=== PATIENT | female | born 1980 | race Caucasian/White ===

== ENCOUNTER 2017-01-31 17:52 | Emergency (ER) | payer OTHER ==
[~2017-01-31] VITALS: Ht 160 cm; Wt 81.6 kg
[~2017-01-31 17:52] MED LIST: ANTIVERT25 MG PO; ZOFRAN ODT4 M1 SL
--- NOTE | 2017-01-31 18:40 | ED UPPER/LOWER EXTREMITY COMPL ---
History of Present Illness General Chief Complaint: Shoulder Injury Stated Complaint: R SHOULDER INJURY Source: patient Exam Limitations: no limitations Vital Signs & Intake/Output Vital Signs & Intake/Output Vital Signs Date Time Temp Pulse Resp B/P Pulse O2 O2 Flow FiO2 Ox Delivery Rate 01/31 2003 98.1 86 16 138/84 98 Room Air 01/31 1919 Room Air 01/31 1758 98.6 86 16 123/77 99 Room Air Allergies Coded Allergies: Penicillins (UNKNOWN 05/16/16) promethazine (From PHENERGAN) (VASO VAGAL 01/31/17) Reconcile Medications Ibuprofen (Advil Liqui-Gels) 200 MG CAPSULE 4 CAP PO PRN PAIN/INFLAMMATION ( Reported) Ketorolac Tromethamine 10 MG TABLET 1 TAB PO TID PRN PAIN RECEIVED IM IN ER Naproxen (Naprosyn) (Unknown Strength) TABLET (Unknown Dose) PO AD PRN PAIN/ INFLAMMATION (Reported) Triage Note: PT C/O RIGHT SHOULDER PAIN DOES NOT REMEMBER INJURING HERSELF. PT STATES THIS PAIN HAS BEEN LASTING FOR A FEW DAYS. PT HAVING INCREASED PAIN WITH MOVEMENT. Triage Nurses Notes Reviewed? yes Onset: Gradual Duration: constant Timing: recent history Severity: severe Severity Numbers: 8 Method of Injury: unknown : No Patient currently breastfeeds: No HPI: Patient is a 36-year-old female who presents emergency room with a three-day history of right shoulder pain. Patient denies any mechanism injury patient has been taking [id number] Motrin Tylenol with minimal relief of symptoms. The patient is right arm dominant. Denies any repetitive motions. (WAYLON PARKER) Past History Travel History Traveled to [place] past 21 day No Medical History Any Pertinent Medical History? see below for history Neurological: migraine Respiratory: asthma Musculoskeletal: fibromyalgia Psychiatric: anxiety, ADHD Surgical History Surgical History: none Psychosocial History Who do you live with Spouse Services at Home None What is your primary language [place] Tobacco Use: Current Daily Use Daily Tobacco Use Amount/Type: => 5 Cigarettes daily ETOH Use: denies use Illicit Drug Use: denies illicit drug use Family History Hx Contributory? No (WAYLON PARKER) Review of Systems Review of Systems Constitutional: Reports: no symptoms. EENTM: Reports: no symptoms. Respiratory: Reports: no symptoms. Cardiovascular: Reports: no symptoms. Gastrointestinal/Abdominal: Reports: no symptoms. Genitourinary: Reports: no symptoms. Musculoskeletal: Reports: see HPI, joint pain. Skin: Reports: no symptoms. Neurological/Psychological: Reports: no symptoms. Hematologic/Endocrine: Reports: no symptoms. Immunological: Reports: no symptoms. All Other Systems: Reviewed and Negative (WAYLON PARKER) Physical Exam Physical Exam General Appearance: no apparent distress, alert, comfortable Neurologic/Tendon: normal sensation, normal motor functions, normal tendon functions, responds to pain, no evidence tendon injury, no pulse deficit Skin: intact, normal color, warm/dry Comments: Well-developed well-nourished no apparent distress. HEENT: Atraumatic, extraocular motion intact Neck: Supple, no lymphadenopathy Back: Nontender Respiratory: No respiratory distress Extremities: Right shoulder normal inspection acromioclavicular point tenderness, decreased active range of motion of flexion and abduction at 60 Right elbow normal inspection nontender Right upper extremity dermatomes intact RADIAL pulse +2 Neuro: Alert and oriented x3 Psych: Mood affect normal, normal memory normal judgment. (WAYLON PARKER) Progress Differential Diagnosis: arterial insufficiency, compartment syndrome, contusion, dislocation, DVT, fracture, gout, septic arthritis, sprain, tendon injury Plan of Care: Orders Procedure Date/time Status Durable Medical Equipment 01/31 1935 Active No osseous injury noted with patient was symptomatically point tender. Shoulder immobilizer was placed pre-and post neurovascular was intact Patient was strongly advised to follow up with orthopedic doctor if no better (WAYLON PARKER) Diagnostic Imaging: Viewed by Me: Radiology Read. Radiology Impression: no fracture Comments: PATIENT: HILLARY PHAN PRESENT AGE: 36 PATIENT ACCOUNT NO: [id number] : 80 LOCATION: [facility] ORDERING PHYSICIAN: WAYLON ESTRADA SERVICE DATE: 01/31/17 EXAM TYPE: RAD - XRY-SHOULDER COMPLETE-RIGHT EXAMINATION: XR SHOULDER, RIGHT CLINICAL INFORMATION: Right shoulder pain COMPARISON: None TECHNIQUE: Three views of the right shoulder, 4 images. FINDINGS: The humeral head is normally located within the glenoid fossa. There is no acute fracture or subluxation. The acromioclavicular and coracoclavicular intervals appear maintained. The visualized right lung apex is clear. IMPRESSION: Unremarkable right shoulder exam. DICTATED BY: JAZMINE CONNORS MD DATE/TIME DICTATED:01/31/171903 COMMERCIAL DIRECTOR:LUCIANA DATE/TIME TRANSCRIBED:01/31/171903 (WAYLON PARKER) Departure Departure Disposition: HOME OR SELF CARE Condition: Stable Clinical Impression Primary Impression: Right shoulder pain Referrals: SAMPSON PLASENCIA MD (PCP/Family) Additional Instructions: As discussed begin icing the area directly 20 minutes every 2 hours. Begin using the shoulder immobilizer UNTIL YOU can move your arm without pain. Begin the prescription ketorolac for pain and inflammation. If no better in one week follow-up with your insurance [employer] website for orthopedic doctors If symptoms worsen return to emergency room Departure Forms: Customer Survey General Discharge Information Prescriptions: Current Visit Scripts Ketorolac Tromethamine 1 TAB PO TID PRN PAIN #15 TAB RECEIVED IM IN ER (WAYLON PARKER) PA/SULFUR CHLORIDE OPERATOR Co-Sign Statement Statement: ED Attending supervision documentation- [] I saw and evaluated the patient. I have also reviewed all the pertinent lab results and diagnostic results. I agree with the findings and the plan of care as documented in the PA's/SULFUR CHLORIDE OPERATOR's documentation. [X] I have reviewed the ED Record and agree with the PA's/SULFUR CHLORIDE OPERATOR's documentation. [] Additions or exceptions (if any) to the PAs/SULFUR CHLORIDE OPERATOR's note and plan are summarized below: [] (ANDRES CARRERA,RONALD)
[2017-01-31] MEDS ORDERED: ADVIL LIQUI-GE200 M1 PO (18:44)
[2017-01-31] MEDS ORDERED: NAPROSYN500 M1 PO (18:44)
--- NOTE | 2017-01-31 19:09 | RADIOLOGY REPORT ---
EXAMINATION: XR SHOULDER, RIGHT CLINICAL INFORMATION: Right shoulder pain COMPARISON: None TECHNIQUE: Three views of the right shoulder, 4 images. FINDINGS: The humeral head is normally located within the glenoid fossa. There is no acute fracture or subluxation. The acromioclavicular and coracoclavicular intervals appear maintained. The visualized right lung apex is clear. IMPRESSION: Unremarkable right shoulder exam.
[2017-01-31] MEDS ORDERED: ZOFRAN4 M2 PO (19:46)
[2017-01-31] MEDS ORDERED: KETOROLAC TROME10 M1 PO (19:46)
[2017-01-31 20:03] VITALS: BP 138/84
== END 2017-01-31 20:15 ==
LOC: ERH 17:52
DX: M25.511 Pain in right shoulder (principal)
CPT/HCPCS: 73030-RT; 96372; J1885

== ENCOUNTER 2018-06-15 15:16 | Emergency (ER) | payer OTHER ==
[~2018-06-15] VITALS: Ht 160 cm; Wt 93.9 kg
[~2018-06-15 15:16] MED LIST changes: +ADVIL LIQUI-GE200 M1 PO; +KETOROLAC TROME10 M1 PO; +NAPROSYN500 M1 PO; +ZOFRAN4 M2 PO
[2018-06-15 15:22] VITALS: BP 120/83
[2018-06-15] MEDS ORDERED: CLEOCIN HCL300 M1 PO (15:28)
[2018-06-15] MEDS ORDERED: PREDNISONE50 M1 PO (15:28)
--- NOTE | 2018-06-15 15:29 | ED GENERAL ADULT ---
History of Present Illness General Chief Complaint: General Adult Stated Complaint: SWOLLEN NECK Source: patient Exam Limitations: no limitations Vital Signs & Intake/Output Vital Signs & Intake/Output Vital Signs Date Time Temp Pulse Resp B/P B/P Pulse O2 O2 Flow FiO2 Mean Ox Delivery Rate 06/15 1522 98.7 112 15 120/83 98 Room Air Room Air Allergies Coded Allergies: Penicillins (UNKNOWN 06/15/18) promethazine (From PHENERGAN) (VASO VAGAL 06/15/18) Reconcile Medications Clindamycin HCl (Cleocin HCl) 300 MG CAPSULE 1 CAP PO TID DENTAL INFECTION Ibuprofen (Advil Liqui-Gels) 200 MG CAPSULE 4 CAP PO PRN PAIN/INFLAMMATION ( Reported) Ketorolac Tromethamine 10 MG TABLET 1 TAB PO TID PRN PAIN RECEIVED IM IN ER Naproxen (Naprosyn) (Unknown Strength) TABLET (Unknown Dose) PO AD PRN PAIN/ INFLAMMATION (Reported) Prednisone 50 MG TABLET 1 TAB PO DAILY FACIAL SWELLING Triage Nurses Notes Reviewed? yes Onset: Abrupt Duration: day(s): (1), constant, continues in ED Timing: single episode today Injury Environment: home Severity: mild, moderate Severity Numbers: 6 No Modifying Factors: none LMP (ages 10-50): unknown : No Patient currently breastfeeds: No HPI: 38-year-old female history of anxiety, asthma, fibromyalgia, migraine headaches since her evaluation of right sided facial and neck swelling. Patient reports that symptoms started today when she woke up. There is associated pain. She denies any difficulty swallowing difficult breathing and chest pain shortness of breath or fever. No rashes. No new exposures. The pain and swelling is only on the right side. He does report some associated nasal congestion and rhinorrhea. No headaches. She did not take any medicine for this. (Curtis John) Past History Travel History Traveled to [place] past 21 day No Medical History Any Pertinent Medical History? see below for history Neurological: migraine Respiratory: asthma Musculoskeletal: fibromyalgia Psychiatric: anxiety, ADHD Surgical History Surgical History: none Psychosocial History Who do you live with Spouse Services at Home None What is your primary language Hungarian Tobacco Use: Current Daily Use Daily Tobacco Use Amount/Type: => 5 Cigarettes daily Family History Hx Contributory? No (Curtis John) Review of Systems Review of Systems Constitutional: Reports: no symptoms. EENTM: Reports: throat swelling. Respiratory: Reports: no symptoms. Cardiovascular: Reports: no symptoms. GI: Reports: no symptoms. Genitourinary: Reports: no symptoms. Musculoskeletal: Reports: no symptoms. Skin: Reports: no symptoms. Neurological/Psychological: Reports: no symptoms. Hematologic/Endocrine: Reports: no symptoms. Immunologic/Allergic: Reports: no symptoms. All Other Systems: Reviewed and Negative (Curtis John) Physical Exam Physical Exam General Appearance: well developed/nourished, no apparent distress, alert, awake Head: atraumatic, normal appearance Eyes: Bilateral: normal appearance, PERRL, EOMI. Ears, Nose, Throat: normal pharynx, normal ENT inspection, hearing grossly normal Neck: normal inspection, supple, full range of motion, there is right sided maxillofacial and right-sided submandibular swelling. No palpable lymphadenopathy. No erythema no focal fluctuant areas no discharge. Swelling is very mild. No induration. No trismus. Patient is handling secretions. No tonsillar swelling or exudate no uvular deviation, no stridor Respiratory: normal breath sounds, chest non-tender, no respiratory distress, lungs clear Cardiovascular: regular rate/rhythm, normal peripheral pulses Peripheral Pulses: 2+ radial (R), 2+ radial (L) Gastrointestinal: soft, non-tender Back: normal inspection, normal range of motion, no vertebral tenderness Extremities: normal inspection, normal range of motion, no edema Neurologic/Psych: no motor/sensory deficits, awake, alert, oriented x 3, normal gait Skin: intact, normal color, warm/dry Lymphatic: no anterior cervical carmen Core Measures ACS in differential dx? No CVA/TIA Diagnosis: No Sepsis Present: No Sepsis Focused Exam Completed? No (Curtis John) Progress Differential Diagnoses I considered the following diagnoses in my evaluation of the patient: [Dental infection, sinusitis, lymphadenopathy, allergic reaction, cellulitis, retropharyngeal abscess, peritonsillar abscess,] Plan of Care: Patient is here for evaluation of right-sided facial and neck swelling. Swelling began today. No difficulty breathing no stridor patient does not appear to be acute distress vitals are stable. Patient will be treated with antibiotics and prednisone. Advised to drink clear fluids rest Tylenol or Motrin for pain. Follow-up with the dentist and primary care doctor. Discussed return precautions in detail patient agrees the plan Initial ED EKG: none (Curtis John) Departure Departure Disposition: HOME OR SELF CARE Condition: Stable Clinical Impression Primary Impression: Right facial swelling Referrals: Tyrell Bartlett MD (PCP/Family) Additional Instructions: Take antibiotics as there is instructed to the full course. Tylenol as needed for pain. Follow-up with her primary care doctor for a recheck. Monitor symptoms of worsening pain worsening swelling and unable tolerate fluids or ANY OTHER CONCERNS RETURN IMMEIDATLY. Departure Forms: Customer Survey General Discharge Information Prescriptions: Current Visit Scripts Prednisone 1 TAB PO DAILY #5 TAB Clindamycin HCl (Cleocin HCl) 1 CAP PO TID #30 CAP (Curtis John) PA/AQUACULTURAL WORKER SUPERVISOR Co-Sign Statement Statement: ED Attending supervision documentation- [] I saw and evaluated the patient. I have also reviewed all the pertinent lab results and diagnostic results. I agree with the findings and the plan of care as documented in the PA's/AQUACULTURAL WORKER SUPERVISOR's documentation. [x] I have reviewed the ED Record and agree with the PA's/AQUACULTURAL WORKER SUPERVISOR's documentation. [] Additions or exceptions (if any) to the PAs/AQUACULTURAL WORKER SUPERVISOR's note and plan are summarized below: [] (Lesly CARRERA,Jeremy Friedman) Critical Care Note Critical Care Note Critical Care Time: non-applicable (Curtis John)
== END 2018-06-15 15:36 ==
LOC: ERH 15:16
DX: R22.0 Localized swelling, mass and lump, head (principal); R22.1 Localized swelling, mass and lump, neck; R09.81 Nasal congestion; J34.89 Other specified disorders of nose and nasal sinuses; J45.909 Unspecified asthma, uncomplicated; G43.909 Migraine, unspecified, not intractable, without status migrainosus; F17.210 Nicotine dependence, cigarettes, uncomplicated